=== PATIENT | male | born 1965 | race Caucasian/White ===

== ENCOUNTER 2021-01-21 13:12 | Inpatient (IN) | payer BC ==
[~2021-01-21] VITALS: Ht 185.4 cm; Wt 108.9 kg
[2021-01-21] MEDS ORDERED: SODIUM CHLORIDE 0.9% 1,000 ML IV ONE (13:30)
[2021-01-21 13:57] LABS: BASOPHILS % 0.4 % (0.0-2.0); EOSINOPHILS % 0.4 % (0.0-5.0); HEMATOCRIT. 42.8 % (42.0-52.0); HEMOGLOBIN. 14.6 g/dL (14.0-18.0); LYMPHOCYTES % 14.9 % (20.0-50.0); MEAN CORPUSCULAR HEMOGLOBIN 34.4 pg (28.0-32.0); MEAN CORPUSCULAR VOLUME 100.7 fL (80.0-94.0); MEAN PLATELET VOLUME 7.7 fl (7.4-10.4); MONOCYTES % 8.9 % (2.0-8.0); NEUTROPHILS % 75.4 % (40.0-76.0); PLATELET 130 x1000/uL (130-400); RED BLOOD CELL COUNT 4.25 mill/uL (4.7-6.1); RED CELL DISTRIBUTION WIDTH 14.4 % (11.6-14.6)
[2021-01-21 14:03] LABS: CHLORIDE 107 mEq/L (98-107)
[2021-01-21 14:07] LABS: ETHANOL BLOOD < 10 mg/dL
[2021-01-21 14:08] LABS: INR 1.1; PROTHROMBIN TIME 11.6 sec (9.6-11.0)
[2021-01-21 16:00] LABS: *AMPHETAMINES SCREEN URINE NEGATIVE (NEGATIVE); *BARBITURATES SCREEN URINE NEGATIVE (NEGATIVE); *BENZODIAZEPINES SCREEN URINE NEGATIVE (NEGATIVE); *COCAINE SCREEN URINE NEGATIVE (NEGATIVE); METHADONE URINE SCREEN NEGATIVE (NEGATIVE); OPIATES URINE SCREEN NEGATIVE (NEGATIVE)
[2021-01-21 16:01] LABS: CANNABINOID URINE SCREEN NEGATIVE (NEGATIVE); PHENCYCLIDINE URINE SCREEN NEGATIVE (NEGATIVE)
[2021-01-21 16:09] LABS: CLARITY URINE CLEAR (CLEAR); COLOR URINE YELLOW (YELLOW); KETONES URINE NEGATIVE (NEGATIVE); LEUKOCYTE ESTERASE URINE NEGATIVE (NEGATIVE); NITRITE URINE NEGATIVE (NEGATIVE); OCCULT BLOOD URINE 1+ (NEGATIVE); PROTEIN URINE NEGATIVE (NEGATIVE); SPECIFIC GRAVITY URINE 1.009 (1.005-1.030); UROBILINOGEN URINE 0.2 E.U./dL (0.2-1.0)
[2021-01-21] MEDS ORDERED: MAGNESIUM/ALUMINUM HYDROXIDE/SIMETHICONE 30ML UDC PO PRN (16:45)
[2021-01-21] MEDS ORDERED: GUAIFENESIN 200MG/10ML SUGAR FREE UDC PO PRN (16:45)
[2021-01-21] MEDS ORDERED: ACETAMINOPHEN 650MG/20.3ML UDC GT PRN ×2 (16:45)
[2021-01-21] MEDS ORDERED: ACETAMINOPHEN 325MG TABLET PO PRN ×2 (16:45)
[2021-01-21] MEDS ORDERED: CLONIDINE 0.1MG TABLET PO PRN (16:45)
[2021-01-21] MEDS ORDERED: NA PHOS,M-B/NA PHOS,DI-BA ENEMA 118ML PR PRN (16:45)
[2021-01-21] MEDS ORDERED: DOCUSATE SODIUM 100MG CAPSULE PO PRN (16:45)
[2021-01-21] MEDS ORDERED: ACETAMINOPHEN 650MG SUPP PR PRN ×2 (16:45)
[2021-01-21] MEDS ORDERED: ONDANSETRON HCL 4MG/2ML INJ IV PRN (16:45)
[2021-01-21] MEDS ORDERED: DIPHENHYDRAMINE 50MG/ML VIAL IV PRN (16:45)
[2021-01-21] MEDS: ENOXAPARIN 30MG/0.3ML SYR SUBCUT SCH (18:00)
[2021-01-21] MEDS: SODIUM CHLORIDE 0.45% 1,000 ML IV SCH (18:00)
[2021-01-21] MEDS ORDERED: ASPIRIN 325MG EC TABLET PO NR (18:00)
[2021-01-21 23:30] VITALS: BP 125/78
[2021-01-22] VITALS: BP 125/78
[2021-01-22] MEDS ORDERED: ACYC200C MT (01:21)
[2021-01-22] MEDS ORDERED: ALLO1POW MT (01:22)
[2021-01-22] MEDS ORDERED: XAR15 MT (01:22)
[2021-01-22 01:26] LABS: CREATINE KINASE 30 IU/L (39-308)
[2021-01-22 01:27] LABS: CREATINE KINASE MB FRACTION < 1.0 ng/mL (0.5-3.6)
[2021-01-22 04:40] VITALS: BP 97/67
[2021-01-22] MEDS: SODIUM CHLORIDE 0.45% 1,000 ML IV SCH (05:12)
[2021-01-22] MEDS: ENOXAPARIN 30MG/0.3ML SYR SUBCUT SCH (05:22)
[2021-01-22 07:10] LABS: BASOPHILS % 0.3 % (0.0-2.0); EOSINOPHILS % 0.8 % (0.0-5.0); HEMATOCRIT. 38.1 % (42.0-52.0); LYMPHOCYTES % 19.8 % (20.0-50.0); MEAN CORPUSCULAR HEMOGLOBIN 34.1 pg (28.0-32.0); MEAN CORPUSCULAR VOLUME 99.4 fL (80.0-94.0); MEAN PLATELET VOLUME 7.7 fl (7.4-10.4); MONOCYTES % 10.3 % (2.0-8.0); NEUTROPHILS % 68.8 % (40.0-76.0); PLATELET 122 x1000/uL (130-400); RED BLOOD CELL COUNT 3.83 mill/uL (4.7-6.1); RED CELL DISTRIBUTION WIDTH 14.5 % (11.6-14.6)
[2021-01-22 07:31] LABS: CHLORIDE 111 mEq/L (98-107)
[2021-01-22 08:00] VITALS: BP 123/79
[2021-01-22 08:00] LABS: CREATINE KINASE 30 IU/L (39-308); HDL CHOLESTEROL 29 mg/dL (40-59)
[2021-01-22 08:02] LABS: LDL CHOLESTEROL 76 mg/dL (5-100)
[2021-01-22 08:07] LABS: CREATINE KINASE MB FRACTION < 1.0 ng/mL (0.5-3.6)
[2021-01-22 09:41] LABS: T4 FREE 1.13 ng/dL (0.76-1.46)
[2021-01-22 12:00] VITALS: BP 117/81
[2021-01-22 16:00] VITALS: BP_SYST 116; BP_SYST 168; BP_DIAS 74; BP_DIAS 88
[2021-01-22 16:23] LABS: CREATINE KINASE 27 IU/L (39-308)
[2021-01-22 16:24] LABS: CREATINE KINASE MB FRACTION < 1.0 ng/mL (0.5-3.6)
[2021-01-22] MEDS ORDERED: RIVAROXABAN 15 MG TABLET PO SCH (17:00)
[2021-01-22 17:40] VITALS: BP 116/74
== END 2021-01-22 18:57 | disposition home or self-care (01) | DRG 948 ==
LOC: ER 13:31 → 6WST 16:10 → EDBEDREQ 16:18 → EDBEDREQTM 16:18 → ENRESERV 22:42
PROVIDERS: ADMIT Family Medicine; ATTEND Family Medicine
DX: R41.82 Altered mental status, unspecified (principal); C90.00 Multiple myeloma not having achieved remission; R73.9 Hyperglycemia, unspecified; M10.9 Gout, unspecified; N18.9 Chronic kidney disease, unspecified; Z85.51 Personal history of malignant neoplasm of bladder; Z86.718 Personal history of other venous thrombosis and embolism; Z79.899 Other long term (current) drug therapy
CPT/HCPCS: 36415; 70551; 71045; 80053; 80061; 80305; 80320; 81003; 82550; 82553; 82962; 83036; 83880; 84439; 84443; 84484; 85025; 85379; 93005; 93306; 99291; J1650; J7030; G0480